=== PATIENT | female | born 1960 | race Caucasian/White ===

== ENCOUNTER 2019-08-14 18:29 | Emergency (ER) | payer OTHER ==
[~2019-08-14] VITALS: Ht 175.3 cm; Wt 104.5 kg
[~2019-08-14 18:29] MED LIST: ATARAX 25MG25 MG/TAB PO; CALCIUM 500 W/V1 TAB PO; EC NAPROSYN375 MG PO; INDERAL 20MG20 MG PO; VITAMIN D31000 IU PO; [UNRECOGNIZED DRUG - OTHER] PO
[2019-08-14 18:30] VITALS: TEMP 97.8
[2019-08-14] MEDS ORDERED: PRINIVIL40 MG PO (18:48)
[2019-08-14 19:43] LABS: BASO % 0.3 % (0.0-2.0); EOS # 0.1 (0.0-0.7); EOS % 1.7 % (0-4.0); GRAN # 5.5 (1.4-6.5); GRAN % 71.8 % (42.2-75.2); HEMATOCRIT 40.7 % (37.0-47.0); HEMOGLOBIN 13.8 g/dl (12.5-16.0); LYMPH # 1.4 (1.2-3.4); LYMPH % 18.2 % (20.0-51.0); MEAN CELL VOLUME 89 fl (80.0-100.0); MEAN CORPUSCULAR HEMOGLOBIN 30 pg (27.0-31.0); MEAN CORPUSCULAR HGB CONC 34 g/dl (33.0-37.0); MEAN PLATELET VOLUME 10.2 fl (7.4-10.4); MONO # 0.5 (0.1-0.6); MONO % 7.1 % (1.7-9.3); PLATELET COUNT 207 K/mm3 (130-400); RED BLOOD COUNT 4.57 M/mm3 (4.10-5.30); REDCELL DISTRIBUTION WIDTH-CV 12.6 % (11.5-14.5)
[2019-08-14 20:09] LABS: ALANINE AMINOTRANSFERASE 31 U/L (9-52); ALBUMIN 4.4 gm/dL (3.5-5.0); ALKALINE PHOSPHATASE 87 U/L (50-136); ANION GAP 8 mmol/L (7-16); AST,SGOT 28 U/L (15-37); BILIRUBIN,TOTAL 1.1 mg/dL (0.0-1.0); BLOOD UREA NITROGEN 14 mg/dL (7-17); CALCIUM 9.3 mg/dL (8.4-10.2); CARBON DIOXIDE 27 mmol/L (22-30); CHLORIDE 104 mmol/L (98-107); CREATININE, serum 0.96 (0.52-1.25); GLUCOSE 114 mg/dL (74-106); POTASSIUM 3.8 mmol/L (3.4-5.0); SODIUM 139 mmol/L (137-145); TOTAL PROTEIN 7.4 gm/dL (6.4-8.2)
[2019-08-14 20:22] LABS: TROPONIN-I < 0.012 ng/mL (0.000-0.035)
[2019-08-14] MEDS ORDERED: FLEXERIL 1010 MG/TAB PO (20:40)
[2019-08-14] MEDS ORDERED: PERCOCET 325 MG1 TA2 PO (20:40)
[2019-08-14 21:44] VITALS: BP 144/89; PULSE 85
== END 2019-08-14 21:46 | disposition home or self-care (01) ==
LOC: COL.ER 18:29
PROVIDERS: Emergency Medicine
DX: S33.9XXA Sprain of unspecified parts of lumbar spine and pelvis, initial encounter (principal); S20.212A Contusion of left front wall of thorax, initial encounter; I10 Essential (primary) hypertension; Z95.0 Presence of cardiac pacemaker; V43.52XA Car driver injured in collision with other type car in traffic accident, initial encounter; R40.2412 Glasgow coma scale score 13-15, at arrival to emergency department
CPT/HCPCS: A9284; J2270; J7030; Q9967

== ENCOUNTER → 2022-07-09 | Outpatient (CLI) | payer OTHER ==
[~2022-07-09] MED LIST changes: +FLEXERIL 1010 MG/TAB PO; +PERCOCET 325 MG1 TA2 PO; +PRINIVIL40 MG PO
== END ==
LOC: COL.RAD 12:01
DX: M75.121 Complete rotator cuff tear or rupture of right shoulder, not specified as traumatic (principal); M19.011 Primary osteoarthritis, right shoulder